=== PATIENT | female | born 1955 | race Caucasian/White ===

== ENCOUNTER 2017-04-05 17:58 | Emergency (ER) | payer BC, MEDICARE ==
--- NOTE | 2017-04-05 18:09 | EDM.PDOC ---
ED HPI GENERAL MEDICAL PROBLEM - General Chief Complaint: Respiratory Problem Stated Complaint: COUGH,CONGESTION Time Seen by Provider: 04/05/17 18:09 Source of Information: Reports: Patient - History of Present Illness INITIAL COMMENTS - FREE TEXT/NARRATIVE: Patient is sent here today from clinic in [place] for evaluation and possible admission for IV antibiotics due to persistent cough 2 weeks. Patient reports that the primary symptom that is concerning to her is her cough and mucus buildup. She states that this is significantly worse when she lays flat. She states that initially when all this started she had fevers and felt "extremely bad ", she does feel that things of improved from where she was to 9 weeks ago. She was reportedly tested for influenza at that time the test was negative. WBC at [place] clinic today was 8,300. Chest x-ray today at the clinic demonstrates "patchy opacities in the lower lungs which could represent infectious infiltrate or atelectasis. Negative for pneumothorax or pleural effusion. Sternotomy. Cardiomegaly. Aortic calcification. She has reportedly been on azithromycin and Bactrim as well as 3 days of IM Rocephin without improvement. She is currently doing DuoNeb treatments twice a day. Patient has a strong cardiac history of CAD, AAA stent, cerebellar stent. She has had previous CABG with cardiac stent as well. She continues to smoke cigarettes daily. She is still on Plavix from her stent placement last August. - Related Data Allergies Allergy/AdvReac Type Severity Reaction Status Date / Time garlic Allergy Vomiting Verified 04/05/17 18:09 polyethylene glycol Allergy Hives Verified 04/05/17 18:09 [From Golytely] polyethylene glycol 3350 Allergy Hives Verified 04/05/17 18:09 [From Golytely] potassium chloride Allergy Hives Verified 04/05/17 18:09 [From Golytely] sodium [From Golytely] Allergy Hives Verified 04/05/17 18:09 sodium bicarbonate Allergy Hives Verified 04/05/17 18:09 [From Golytely] sodium chloride Allergy Hives Verified 04/05/17 18:09 [From Golytely] sodium sulfate Allergy Hives Verified 04/05/17 18:09 [From Golytely] [id number] Reductase Allergy Muscle Verified 04/05/17 18:09 Inhibitor Aches Home Meds: Home Meds Albuterol/Ipratropium [DuoNeb 3.0-0.5 MG/3 ML] 3 ml NEB BID 04/05/17 [History] Aspirin [Felicia Chewable] 81 mg PO DAILY 04/05/17 [History] Azithromycin [IJD: Azithromycin] 250 mg PO DAILY 04/05/17 [History] Carvedilol [Coreg] 3.125 mg PO BID 04/05/17 [History] Clopidogrel [Plavix] 75 mg PO DAILY 04/05/17 [History] Codeine/Promethazine HCl [Promethazine-Codeine Syrup] 5 ml PO Q6H PRN 04/05/17 [ History] Cyclobenzaprine [Flexeril] 5 mg PO BEDTIME 04/05/17 [History] Fluticasone Propionate [Flonase] 16 gm NS DAILY 04/05/17 [History] Furosemide [Lasix] 20 mg PO DAILY 04/05/17 [History] Isosorbide Mononitrate [Imdur] 30 mg PO DAILY 04/05/17 [History] LORazepam [Ativan] 0.5 mg PO DAILY PRN 04/05/17 [History] Levothyroxine Sodium [Synthroid] 137 mcg PO DAILY 04/05/17 [History] Nitroglycerin [Nitrostat] 0.4 mg SL ASDIRECTED PRN 04/05/17 [History] Omeprazole 20 mg PO DAILY 04/05/17 [History] Potassium Chloride 10 meq PO DAILY 04/05/17 [History] Temazepam 30 mg PO BEDTIME PRN 04/05/17 [History] Venlafaxine [Effexor XR] 75 mg PO BEDTIME 04/05/17 [History] busPIRone [Buspar] 15 mg PO BID 04/05/17 [History] hydrOXYzine HCl [Atarax] 10 mg PO BEDTIME 04/05/17 [History] ED ROS GENERAL - Review of Systems Review Of Systems: See Below Constitutional: Reports: Malaise, Fatigue, Decreased Appetite. Denies: Fever, Weakness HEENT: Reports: Sinus Problem (Congestion is improved). Denies: Ear Discharge, Ear Pain, Throat Pain Respiratory: Reports: Wheezing, Cough, Sputum. Denies: Shortness of Breath, Hemoptysis Cardiovascular: Reports: Edema, Orthopnea. Denies: Chest Pain, Dyspnea on Exertion GI/Abdominal: Denies: Abdominal Pain, Constipation, Diarrhea, Nausea, Vomiting Musculoskeletal: Reports: No Symptoms Skin: Reports: No Symptoms ED EXAM, GENERAL - Physical Exam Exam: See Below Exam Limited By: No Limitations General Appearance: Alert, WD/WN, No Apparent Distress, Other (Patient is not acutely ill in appearance.) Ears: Normal External Exam, Normal Canal, Normal TMs Nose: Normal Inspection, Normal Mucosa Throat/Mouth: Normal Inspection, Normal Oropharynx, Normal Voice Head: Atraumatic, Normocephalic Neck: Normal Inspection, Supple, Non-Tender. No: Lymphadenopathy (L), Lymphadenopathy (R) Respiratory/Chest: No Respiratory Distress, Decreased Breath Sounds (Bilateral bases), Crackles (Bilateral bases), Wheezing (Scattered bilaterally, mild.). No : Rales, Rhonchi Cardiovascular: Normal Peripheral Pulses, Regular Rate, Rhythm, No Murmur GI/Abdominal: Normal Bowel Sounds, Soft, Non-Tender Neurological: Alert, Oriented, CN II-XII Intact Psychiatric: Normal Affect, Normal Mood Skin Exam: Warm, Dry, Intact Course - Vital Signs Last Recorded V/S: Last Vital Signs Temp 97.9 F 04/05/17 18:05 Pulse 78 04/05/17 19:52 Resp 16 04/05/17 18:05 BP 156/48 H 04/05/17 18:05 Pulse Ox 94 L 04/05/17 18:05 - Orders/Labs/Meds Orders: Active Orders 24 hr Category Date Time Status RT Aerosol Therapy [RC] ASDIRECTED Care 04/05/17 19:36 Active Labs: Laboratory Tests 04/05/17 04/05/17 04/05/17 Range/Units 19:01 19:01 19:01 WBC 8.86 (3.98-10.04) K/mm3 RBC 4.87 (3.98-5.22) M/mm3 Hgb 9.9 L (11.2-15.7) gm/L Hct 35.7 (34.1-44.9) % MCV 73.3 L (79.4-94.8) fl MCH 20.3 L (25.6-32.2) pg MCHC 27.7 L (32.2-35.5) g/dl RDW Std Deviation 47.0 H (36.4-46.3) fL Plt Count 368 (182-369) K/mm3 MPV 8.7 L (9.4-12.3) fl Neutrophils % (Manual) 71 H (40-60) % Band Neutrophils % 0 (0-10) % Lymphocytes % (Manual) 23 (20-40) % Atypical Lymphs % 0 % Monocytes % (Manual) 5 (2-10) % Eosinophils % (Manual) 0 L (0.7-5.8) % Basophils % (Manual) 1 (0.1-1.2) Platelet Estimate Adequate Plt Morphology Comment Normal Hypochromasia 2+ moderate Poikilocytosis 3+ marked Microcytosis 3+ marked RBC Morph Comment Not Reportable Sodium 140 (136-145) mEq/L Potassium 3.8 (3.5-5.1) mEq/L Chloride 101 (98-107) mEq/L Carbon Dioxide 33 H (21-32) mEq/L Anion Gap 9.8 (5-15) BUN 12 (7-18) mg/dL Creatinine 0.9 (0.55-1.02) mg/dL Est Cr Clr Drug Dosing 54.30 mL/min Estimated GFR (MDRD) > 60 (>60) mL/min BUN/Creatinine Ratio 13.3 L (14-18) Glucose 120 H (80-115) mg/dL Calcium 8.9 (8.5-10.1) mg/dL Iron (50-170) ug/dL TIBC (100-400) ug/dL % Saturation (20-55) % Transferrin (202-364) mg/dL Ferritin (8-252) ng/ml Total Bilirubin 0.3 (0.2-1.0) mg/dL AST 20 (15-37) U/L ALT 21 (14-59) U/L Alkaline Phosphatase 74 (46-116) U/L C-Reactive Protein 0.3 (<1.0) mg/dL NT-Pro-B Natriuret Pep 2127 H (0-125) pg/mL Total Protein 7.2 (6.4-8.2) g/dl Albumin 3.0 L (3.4-5.0) g/dl Globulin 4.2 gm/dL Albumin/Globulin Ratio 0.7 L (1-2) 18 Range/Units 19:01 WBC (3.98-10.04) K/mm3 RBC (3.98-5.22) M/mm3 Hgb (11.2-15.7) gm/L Hct (34.1-44.9) % MCV (79.4-94.8) fl MCH (25.6-32.2) pg MCHC (32.2-35.5) g/dl RDW Std Deviation (36.4-46.3) fL Plt Count (182-369) K/mm3 MPV (9.4-12.3) fl Neutrophils % (Manual) (40-60) % Band Neutrophils % (0-10) % Lymphocytes % (Manual) (20-40) % Atypical Lymphs % % Monocytes % (Manual) (2-10) % Eosinophils % (Manual) (0.7-5.8) % Basophils % (Manual) (0.1-1.2) Platelet Estimate Plt Morphology Comment Hypochromasia Poikilocytosis Microcytosis RBC Morph Comment Sodium (136-145) mEq/L Potassium (3.5-5.1) mEq/L Chloride (98-107) mEq/L Carbon Dioxide (21-32) mEq/L Anion Gap (5-15) BUN (7-18) mg/dL Creatinine (0.55-1.02) mg/dL Est Cr Clr Drug Dosing mL/min Estimated GFR (MDRD) (>60) mL/min BUN/Creatinine Ratio (14-18) Glucose (80-115) mg/dL Calcium (8.5-10.1) mg/dL Iron 29 L (50-170) ug/dL TIBC 344 (100-400) ug/dL % Saturation 8 L (20-55) % Transferrin 275 (202-364) mg/dL Ferritin 21 (8-252) ng/ml Total Bilirubin (0.2-1.0) mg/dL AST (15-37) U/L ALT (14-59) U/L Alkaline Phosphatase (46-116) U/L C-Reactive Protein (<1.0) mg/dL NT-Pro-B Natriuret Pep (0-125) pg/mL Total Protein (6.4-8.2) g/dl Albumin (3.4-5.0) g/dl Globulin gm/dL Albumin/Globulin Ratio (1-2) Meds: Medications Discontinued Medications Generic Name Dose Route Start Last Admin Trade Name Freq PRN Reason Stop Dose Admin Albuterol/Ipratropium 3 ml 04/05/17 19:36 04/05/17 19:52 Duoneb 3.0-0.5 Mg/3 Ml NEB 04/05/17 19:37 3 ml ONETIME ONE Administration - Re-Assessments/Exams Free Text/Narrative Re-Assessment/Exam: Patient has a mixture symptoms going on. It starts that she sounds like she had influenza type illness several weeks ago and she is not healing well from this. She does smoke daily. Chest CT demonstrates minimal atelectasis within both lung bases but nothing acute. Her symptoms are not likely infectious in etiology, her WBC 8,860 with 71% neutrophils and 0 bands. Her CRP is 0.3. She is afebrile and not acutely ill in appearance. For respiratory symptoms will have her take Mucinex twice daily and her new DuoNeb 3-4 times daily. She may need to consider PFTs/further evaluation for COPD and starting a daily inhaler in the future with her PCP. BNP elevated at 2127, patient having 2+ pitting edema as well. Creatinine is 0.9 Increase Lasix to 40 mg twice a day. She will recheck with her PCP to see if this can be decreased back to her baseline dose in a week. Patient does have microcytic anemia, hemoglobin is 9.9 and hematocrit 35.7 MCV is 73. Iron is low at 29. Patient denies any hematochezia or melena. She is on Plavix and aspirin both for cardiac stents. Patient states that she has been anemic previously, unclear if this is worsening from her baseline. Hemoglobin is not concerningly low at this point, but will need to be certainly monitored closely. Patient is going to start a by mouth iron/vitamin C supplement. Her hemoglobin and iron will need to be checked on an outpatient basis. Her albumin is fairly low today to will likely need monitoring. Patient is to follow-up with her PCP in 7-10 days or certainly worse sooner if any worsening in her respiratory symptoms or worsening of her fatigue. Patient and her verbalized understanding and are in agreement with this plan. 04/05/17 20:39 04/05/17 20:47 04/05/17 20:54 Departure - Departure Time of Disposition: 20:36 Disposition: Home, Self-Care 01 Condition: Good Clinical Impression: Atelectasis, bilateral, Cough Anemia Qualifiers: Anemia type: iron deficiency Iron deficiency anemia type: unspecified iron deficiency Qualified Code(s): D50.9 - Iron deficiency anemia, unspecified CHF (congestive heart failure) Qualifiers: Congestive heart failure type: unspecified Congestive heart failure chronicity : chronic Qualified Code(s): I50.9 - Heart failure, unspecified - Discharge Information Instructions: Cough, Adult, [id number], Atelectasis, Adult, Iron Deficiency Anemia, Adult, [id number] Referrals: PCP,Not In Area [Primary Care Provider] - Forms: ED Department Discharge Additional Instructions: Take your Duoneb 3-4x per day. Mucinex (plain mucinex) 2x daily Increase your lasix to 40mg 2x daily Take an [id number] iron/vitamin C supplement daily. Follow-up with your primary provider within a week or sooner if any worsening of symptoms or weakness/fatigue. You may certainly return to the emergency room if needed as well. - My Orders Last 24 Hours: My Active Orders 04/05/17 19:36 RT Aerosol Therapy [RC] ASDIRECTED - Assessment/Plan Last 24 Hours: My Active Orders 04/05/17 19:36 RT Aerosol Therapy [RC] ASDIRECTED
--- NOTE | 2017-04-05 19:33 | CT ---
CT chest Technique: Multiple axial sections were obtained from above the lung apices inferiorly through the lung bases. Intravenous contrast not utilized. Comparison: No previous chest imaging is available. Findings: Previous sternotomy is noted due to prior CABG. No pericardial thickening is seen. No discrete abnormality is seen within the upper abdomen. Minimal atelectasis is seen within both lung bases. Lungs otherwise are clear. No pleural effusions or pneumothorax is seen. Bone window settings were reviewed which shows disc calcification within several mid and lower thoracic discs. Minimal degenerative change is seen within the thoracic spine. Impression: 1. Minimal atelectasis within both lung bases. Other incidental findings. 2. Nothing acute is seen on noncontrast chest CT. Diagnostic code #2
[2017-04-05] MEDS ORDERED: Albuterol/Ipratropium 3.0-0.5 MG/3 ML Neb Soln NEB ONE (19:36)
== END 2017-04-05 20:51 | disposition home or self-care (01) ==
LOC: JD.ED 17:58
DX: I50.9 Heart failure, unspecified (principal); D50.9 Iron deficiency anemia, unspecified; J98.11 Atelectasis; F17.210 Nicotine dependence, cigarettes, uncomplicated; Z88.8 Allergy status to other drugs, medicaments and biological substances; Z79.82 Long term (current) use of aspirin; Z79.899 Other long term (current) drug therapy
CPT/HCPCS: 36415; 71250; 71250-26; 80053; 82728; 83540; 83880; 84466; 85025; 86140; 94640; 99283; 99284-25